=== PATIENT | male | born 1980 | race African-American/Black ===

== ENCOUNTER 2017-08-06 18:14 | Inpatient (IN) | payer MEDICAID ==
[~2017-08-06] VITALS: Ht 177.8 cm; Wt 93.4 kg
[~2017-08-06 18:14] MED LIST: SERT100T12 PO
[2017-08-06 21:30] VITALS: BP 128/76
[2017-08-06] MEDS ORDERED: HydrOXYzine PAMOATE 50 MG CAPSULE PO PRN (21:30)
[2017-08-06] MEDS ORDERED: LOPERAMIDE HCL 2 MG CAPSULE PO PRN (21:30)
[2017-08-06] MEDS ORDERED: LORazepam 2 MG TABLET PO PRN (21:30)
[2017-08-06] MEDS ORDERED: GuaiFENesin/D-METHORPHAN [SUGAR-FREE] 200-20MG/10 ML SYRUP UDCUP PO PRN (21:30)
[2017-08-06] MEDS ORDERED: CYANOCOBALAMIN 1,000 MCG/ML VIAL IM ONE (21:30)
[2017-08-06 21:41] VITALS: BP 128/75
[2017-08-06] MEDS ORDERED: -PHARMACY VACCINE NOTE- MISC ONE ×2 (21:45)
[2017-08-06] MEDS: THIAMINE HCL 100 MG TABLET PO SCH (21:55)
[2017-08-06 22:36] VITALS: BP 133/65
[2017-08-06 23:30] VITALS: BP 127/67
[2017-08-07] VITALS (8 sets, daily range): BP systolic 115–138; BP diastolic 64–81
[2017-08-07] MEDS ORDERED: LORazepam 2 MG TABLET PO PRN (07:00)
[2017-08-07 07:39] LABS: BASOPHILS % (AUTO) 0.5 % (0.0-2.0); EOSINOPHILS % (AUTO) 3.5 % (1.0-6.0); HEMATOCRIT 40.5 % (41-53); HEMOGLOBIN 13.7 g/dL (13.5-17.5); LYMPHOCYTES # (AUTO) 1.2 K/uL (1.0-4.8); LYMPHOCYTES % (AUTO) 33.4 % (22.0-44.0); MEAN CORPUSCULAR HEMOGLOBIN 28.7 pg (26.0-34.0); MEAN CORPUSCULAR HGB CONC 33.9 G/dL (31.0-37.0); MEAN CORPUSCULAR VOLUME 84 fL (80-100); MONOCYTES # (AUTO) 0.7 K/uL (0.1-1.0); MONOCYTES % (AUTO) 18.8 % (2.0-9.0); NEUTROPHILS # (AUTO) 1.6 K/uL (1.8-7.7); NEUTROPHILS % (AUTO) 43.8 % (40.0-70.0); PLATELET COUNT (AUTO) 189 K/uL (150-450); RED BLOOD CELL COUNT(AUTO) 4.79 MIL/uL (4.50-5.90); RED CELL DISTRIBUTION WIDTH 15.5 % (11.5-14.5); WHITE BLOOD COUNT (AUTO) 3.6 K/uL (4.5-11.0)
[2017-08-07 08:03] LABS: ALANINE AMINOTRANSFERASE 127 U/L (12-78); ALBUMIN 3.6 g/dL (3.4-5.0); ANION GAP 7 mmol/L (8-16); ASPARTATE AMINOTRANSFERASE 83 U/L (15-37); BILIRUBIN,TOTAL 0.7 mg/dL (0.1-1.0); CALCIUM, TOTAL 8.9 mg/dL (8.8-10.5); CARBON DIOXIDE 28 mmol/L (22-29); CHLORIDE 101 mmol/L (98-107); CREATININE 0.76 mg/dL (0.60-1.30); GLOMERULAR FILTR. RATE CALC > 60 mL/min (>60); POTASSIUM 3.9 mmol/L (3.5-5.1); SODIUM SERUM 136 mmol/L (136-145); THYROID STIMULATING HORMONE 1.86 uIU/mL (0.36-3.74); TOTAL PROTEIN, SERUM 7.3 g/dL (6.4-8.2); UREA NITROGEN, BLOOD 12 mg/dL (7-18)
[2017-08-07 08:34] LABS: APPEARANCE,URINE CLEAR (CLEAR); GLUCOSE, URINE (UA) NEGATIVE (NEGATIVE); KETONES,URINE 15 mg/dL (NEGATIVE); LEUKOCYTE ESTERASE ,URINE TRACE (NEGATIVE); OCCULT BLOOD,URINE NEGATIVE (NEGATIVE); PROTEIN,URINE POS 1+ (NEGATIVE)
[2017-08-07 08:38] LABS: ADD UA MICROSCOPIC YES
[2017-08-07 08:41] LABS: RBC,URINE 0-2 /HPF (0-2); WBC,URINE 0-2 /HPF (0-5)
[2017-08-07 08:49] LABS: CHOL/HDL RATIO 1.7 (4.2-7.3)
[2017-08-07] MEDS ORDERED: PETROLATUM,WHITE 71 GM JELLY TP PRN (09:00)
[2017-08-07] MEDS ORDERED: CloNIDine HCL 0.1 MG TABLET PO PRN (09:00)
[2017-08-07] MEDS ORDERED: MAGNESIUM HYDROXIDE SUSPENSION 30 ML UDCUP PO PRN (09:00)
[2017-08-07] MEDS ORDERED: ACETAMINOPHEN 325 MG TABLET PO PRN (09:00)
[2017-08-07] MEDS ORDERED: ONDANSETRON HCL 4 MG TABLET PO PRN (09:00)
[2017-08-07] MEDS ORDERED: BENZOCAINE/MENTHOL LOZENGE MM PRN (09:00)
[2017-08-07] MEDS ORDERED: LOPERAMIDE HCL 2 MG CAPSULE PO PRN (09:00)
[2017-08-07] MEDS ORDERED: BACITRACIN 28.4 GM OINTMENT TP PRN (09:00)
[2017-08-07] MEDS ORDERED: ALBUTEROL SULFATE HFA 90 MCG/PUFF 8 GM INHALER IH PRN (09:00)
[2017-08-07] MEDS ORDERED: MAG HYDROX/AL HYDROX/SIMETH ES 30 ML SUSPENSION UDCUP PO PRN (09:00)
[2017-08-07] MEDS: FOLIC ACID 1 MG TABLET PO SCH (09:53)
[2017-08-07] MEDS: LORazepam 2 MG TABLET PO SCH ×4 (09:53→21:17)
[2017-08-07] MEDS: MULTIVITAMINS WITH MINERALS, THERAPEUTIC TABLET PO SCH (09:53)
[2017-08-07] MEDS: THIAMINE HCL 100 MG TABLET PO SCH ×2 (09:53→17:09)
[2017-08-07] MEDS: SERTRALINE HCL 100 MG TABLET PO SCH (10:56)
[2017-08-08 01:25] VITALS: BP 117/63
[2017-08-08 05:30] VITALS: BP 115/68
[2017-08-08 09:00] VITALS: BP 128/67
[2017-08-08] MEDS: MULTIVITAMINS WITH MINERALS, THERAPEUTIC TABLET PO SCH (09:01)
[2017-08-08] MEDS: THIAMINE HCL 100 MG TABLET PO SCH ×2 (09:01→17:18)
[2017-08-08] MEDS: FOLIC ACID 1 MG TABLET PO SCH (09:01)
[2017-08-08] MEDS: LORazepam 2 MG TABLET PO SCH ×4 (09:01→20:55)
[2017-08-08] MEDS: SERTRALINE HCL 100 MG TABLET PO SCH (09:01)
[2017-08-08] MEDS ORDERED: DICLOFENAC SODIUM 1% 100 GM GEL [4GM] TP PRN (12:15)
[2017-08-08 17:00] VITALS: BP 133/75
[2017-08-08 17:15] VITALS: BP 118/76
[2017-08-09 05:43] VITALS: BP_SYST 103; BP_DIAS 6; BP_DIAS 66
[2017-08-09] MEDS ORDERED: LORazepam 1 MG TABLET PO PRN (07:00)
[2017-08-09 08:11] LABS: HEPATITIS Bs ANTIGEN SCREEN P Negative (Negative); HEPATITIS C AB SCREEN <0.1 s/co ratio (0.0-0.9)
[2017-08-09 09:01] VITALS: BP 115/94
[2017-08-09 09:05] VITALS: BP 115/94
[2017-08-09] MEDS: FOLIC ACID 1 MG TABLET PO SCH (09:32)
[2017-08-09] MEDS: SERTRALINE HCL 100 MG TABLET PO SCH (09:32)
[2017-08-09] MEDS: THIAMINE HCL 100 MG TABLET PO SCH ×2 (09:32→17:10)
[2017-08-09] MEDS: MULTIVITAMINS WITH MINERALS, THERAPEUTIC TABLET PO SCH (09:32)
[2017-08-09] MEDS: LORazepam 1 MG TABLET PO SCH ×4 (09:32→20:53)
[2017-08-09 12:40] VITALS: BP 125/78
[2017-08-09 16:30] VITALS: BP 118/88
[2017-08-09 16:49] VITALS: BP 118/88
[2017-08-10 06:51] VITALS: BP 112/59
[2017-08-10 06:52] VITALS: BP 112/59
[2017-08-10] MEDS ORDERED: LORazepam 1 MG TABLET PO PRN (07:00)
[2017-08-10 08:19] VITALS: BP 115/63
[2017-08-10] MEDS: SERTRALINE HCL 100 MG TABLET PO SCH (08:29)
[2017-08-10] MEDS: FOLIC ACID 1 MG TABLET PO SCH (08:29)
[2017-08-10] MEDS: THIAMINE HCL 100 MG TABLET PO SCH ×2 (08:29→17:06)
[2017-08-10] MEDS: MULTIVITAMINS WITH MINERALS, THERAPEUTIC TABLET PO SCH (08:29)
[2017-08-10] MEDS: IBUPROFEN 600 MG TABLET PO PRN ×2 (08:33→19:20)
[2017-08-10 09:36] VITALS: BP 115/63
[2017-08-10] MEDS ORDERED: BENZOYL PEROXIDE 10% TP PRN (14:15)
[2017-08-10 16:14] VITALS: BP 126/80
[2017-08-11 00:04] VITALS: BP 106/64
[2017-08-11] MEDS: THIAMINE HCL 100 MG TABLET PO SCH ×2 (08:13→16:47)
[2017-08-11] MEDS: MULTIVITAMINS WITH MINERALS, THERAPEUTIC TABLET PO SCH (08:13)
[2017-08-11] MEDS: DICLOFENAC SODIUM 1% 100 GM GEL [4GM] TP SCH ×2 (08:14→16:47)
[2017-08-11] MEDS: FOLIC ACID 1 MG TABLET PO SCH (08:14)
[2017-08-11] MEDS: SERTRALINE HCL 100 MG TABLET PO SCH (08:14)
[2017-08-11 08:56] LABS: HEMATOCRIT 41.2 % (41-53); MEAN CORPUSCULAR HEMOGLOBIN 28.4 pg (26.0-34.0); MEAN CORPUSCULAR HGB CONC 33.9 G/dL (31.0-37.0); MEAN CORPUSCULAR VOLUME 84 fL (80-100); PLATELET COUNT (AUTO) 196 K/uL (150-450); RED BLOOD CELL COUNT(AUTO) 4.92 MIL/uL (4.50-5.90); RED CELL DISTRIBUTION WIDTH 15.2 % (11.5-14.5); WHITE BLOOD COUNT (AUTO) 4.6 K/uL (4.5-11.0)
[2017-08-11 09:53] LABS: ANION GAP 5 mmol/L (8-16); CALCIUM, TOTAL 9.2 mg/dL (8.8-10.5); CARBON DIOXIDE 31 mmol/L (22-29); CHLORIDE 101 mmol/L (98-107); CHOL/HDL RATIO 2.4 (4.2-7.3); CREATININE 0.81 mg/dL (0.60-1.30); GLOMERULAR FILTR. RATE CALC > 60 mL/min (>60); PHOSPHORUS 3.9 mg/dL (2.5-4.9); POTASSIUM 4.6 mmol/L (3.5-5.1); SODIUM SERUM 137 mmol/L (136-145); THYROID STIMULATING HORMONE 2.21 uIU/mL (0.36-3.74); UREA NITROGEN, BLOOD 14 mg/dL (7-18)
[2017-08-11 10:15] LABS: EOSINOPHILS % (MANUAL) 1 % (1-6); LYMPHOCYTES % (MANUAL) 37 % (22-44); RBC MORPHOLOGY COMMENT NORMAL RBC MORPH; TOTAL CELLS COUNTED 100
[2017-08-11 10:24] VITALS: BP 118/61
[2017-08-11 10:58] VITALS: BP 124/71
[2017-08-11 10:59] VITALS: BP 124/71
[2017-08-11] MEDS: IBUPROFEN 600 MG TABLET PO PRN (11:00)
[2017-08-11 16:07] VITALS: BP 116/73
[2017-08-11 16:09] VITALS: BP 116/73
[2017-08-12 01:40] VITALS: BP 101/62
[2017-08-12 02:00] VITALS: BP 101/62
[2017-08-12 07:19] LABS: HEPATITIS C AB SCREEN <0.1 s/co ratio (0.0-0.9)
[2017-08-12] MEDS: DICLOFENAC SODIUM 1% 100 GM GEL [4GM] TP SCH ×2 (08:14→16:19)
[2017-08-12] MEDS: SERTRALINE HCL 100 MG TABLET PO SCH (08:14)
[2017-08-12] MEDS: MULTIVITAMINS WITH MINERALS, THERAPEUTIC TABLET PO SCH (08:14)
[2017-08-12] MEDS: THIAMINE HCL 100 MG TABLET PO SCH ×2 (08:14→16:19)
[2017-08-12] MEDS: FOLIC ACID 1 MG TABLET PO SCH (08:14)
[2017-08-12 09:03] VITALS: BP 125/66
[2017-08-12 10:52] VITALS: BP 125/66
[2017-08-12 16:26] VITALS: BP 121/72
[2017-08-12 16:28] VITALS: BP 121/72
[2017-08-12] MEDS ORDERED: ZOLPIDEM TARTRATE 10 MG TABLET PO PRN (20:30)
[2017-08-13 00:01] VITALS: BP 120/77
[2017-08-13] MEDS: MULTIVITAMINS WITH MINERALS, THERAPEUTIC TABLET PO SCH (09:00)
[2017-08-13] MEDS: DICLOFENAC SODIUM 1% 100 GM GEL [4GM] TP SCH ×2 (09:00→16:28)
[2017-08-13] MEDS: CHOLECALCIFEROL (VIT D3) 1,000 UNITS TABLET PO SCH (09:00)
[2017-08-13] MEDS: THIAMINE HCL 100 MG TABLET PO SCH ×2 (09:00→16:28)
[2017-08-13] MEDS: SERTRALINE HCL 100 MG TABLET PO SCH (09:00)
[2017-08-13] MEDS: FOLIC ACID 1 MG TABLET PO SCH (09:00)
[2017-08-13 09:06] VITALS: BP 103/55
[2017-08-13] MEDS ORDERED: LORazepam 1 MG TABLET PO PRN (15:15)
[2017-08-13] MEDS ORDERED: DiphenhydrAMINE HCL 25 MG CAPSULE PO PRN (15:15)
[2017-08-13 16:12] VITALS: BP 108/62
[2017-08-14 00:01] VITALS: BP 103/63
[2017-08-14] MEDS: MULTIVITAMINS WITH MINERALS, THERAPEUTIC TABLET PO SCH (07:58)
[2017-08-14] MEDS: DICLOFENAC SODIUM 1% 100 GM GEL [4GM] TP SCH (07:58)
[2017-08-14] MEDS: THIAMINE HCL 100 MG TABLET PO SCH (07:58)
[2017-08-14] MEDS: FOLIC ACID 1 MG TABLET PO SCH (07:58)
[2017-08-14] MEDS: SERTRALINE HCL 100 MG TABLET PO SCH (07:58)
[2017-08-14] MEDS: CHOLECALCIFEROL (VIT D3) 1,000 UNITS TABLET PO SCH (07:58)
[2017-08-14 08:16] VITALS: BP 114/60
[2017-08-14] MEDS ORDERED: DICL2100G TP (13:54)
== END 2017-08-14 15:50 | disposition home or self-care (01) | DRG 750 ==
LOC: B2S 20:30
PROVIDERS: ADMIT Psychiatry & Neurology Psychiatry; ATTEND Psychiatry & Neurology Child & Adolescent Psychiatry
DX: F20.0 Paranoid schizophrenia (principal); R45.851 Suicidal ideations; F32.9 Major depressive disorder, single episode, unspecified; F10.10 Alcohol abuse, uncomplicated; Z71.41 Alcohol abuse counseling and surveillance of alcoholic; F17.200 Nicotine dependence, unspecified, uncomplicated; Z71.6 Tobacco abuse counseling; G47.00 Insomnia, unspecified; K21.9 Gastro-esophageal reflux disease without esophagitis; K59.00 Constipation, unspecified
CPT/HCPCS: 80074; 80307; 82306; 83036; 83735; 84100; 84439; 84443; 85007; 86706; 86707; 86709; 86803; 87340; 87350; J3420

== ENCOUNTER 2017-09-02 09:54 | Inpatient (IN) | payer MEDICAID ==
[~2017-09-02] VITALS: Ht 175.3 cm; Wt 95.7 kg
[2017-09-02] VITALS (8 sets, daily range): BP systolic 115–146; BP diastolic 60–82
[~2017-09-02 09:54] MED LIST changes: +DICL2100G TP
[2017-09-02] MEDS ORDERED: CYANOCOBALAMIN 1,000 MCG/ML VIAL IM ONE (11:15)
[2017-09-02] MEDS ORDERED: GuaiFENesin/D-METHORPHAN [SUGAR-FREE] 200-20MG/10 ML SYRUP UDCUP PO PRN (11:15)
[2017-09-02] MEDS ORDERED: ChlordiazePOXIDE HCL 25 MG CAPSULE PO PRN (11:15)
[2017-09-02] MEDS ORDERED: HydrOXYzine PAMOATE 50 MG CAPSULE PO PRN (11:15)
[2017-09-02] MEDS: THIAMINE HCL 100 MG TABLET PO SCH (16:51)
[2017-09-02] MEDS: LOPERAMIDE HCL 2 MG CAPSULE PO PRN (19:41)
[2017-09-03] VITALS (8 sets, daily range): BP systolic 117–130; BP diastolic 60–80
[2017-09-03] MEDS ORDERED: ChlordiazePOXIDE HCL 25 MG CAPSULE PO PRN (07:00)
[2017-09-03 07:28] LABS: BASOPHILS % (AUTO) 0.7 % (0.0-2.0); HEMATOCRIT 39.3 % (41-53); HEMOGLOBIN 13.2 g/dL (13.5-17.5); LYMPHOCYTES # (AUTO) 1.9 K/uL (1.0-4.8); LYMPHOCYTES % (AUTO) 35.7 % (22.0-44.0); MEAN CORPUSCULAR HEMOGLOBIN 28.5 pg (26.0-34.0); MEAN CORPUSCULAR HGB CONC 33.7 G/dL (31.0-37.0); MEAN CORPUSCULAR VOLUME 85 fL (80-100); MONOCYTES # (AUTO) 0.7 K/uL (0.1-1.0); MONOCYTES % (AUTO) 12.5 % (2.0-9.0); NEUTROPHILS # (AUTO) 2.6 K/uL (1.8-7.7); NEUTROPHILS % (AUTO) 48.1 % (40.0-70.0); PLATELET COUNT (AUTO) 246 K/uL (150-450); RED BLOOD CELL COUNT(AUTO) 4.63 MIL/uL (4.50-5.90); RED CELL DISTRIBUTION WIDTH 15.4 % (11.5-14.5); WHITE BLOOD COUNT (AUTO) 5.4 K/uL (4.5-11.0)
[2017-09-03 08:02] LABS: ALANINE AMINOTRANSFERASE 46 U/L (12-78); ALBUMIN 3.6 g/dL (3.4-5.0); ANION GAP 6 mmol/L (8-16); ASPARTATE AMINOTRANSFERASE 28 U/L (15-37); BILIRUBIN,TOTAL 0.8 mg/dL (0.1-1.0); CALCIUM, TOTAL 8.8 mg/dL (8.8-10.5); CARBON DIOXIDE 30 mmol/L (22-29); CHLORIDE 102 mmol/L (98-107); CHOL/HDL RATIO 2.3 (4.2-7.3); CREATININE 0.94 mg/dL (0.60-1.30); GLOMERULAR FILTR. RATE CALC > 60 mL/min (>60); SODIUM SERUM 138 mmol/L (136-145); THYROID STIMULATING HORMONE 2.08 uIU/mL (0.36-3.74); TOTAL PROTEIN, SERUM 6.6 g/dL (6.4-8.2); UREA NITROGEN, BLOOD 12 mg/dL (7-18)
[2017-09-03] MEDS ORDERED: MAG HYDROX/AL HYDROX/SIMETH ES 30 ML SUSPENSION UDCUP PO PRN (08:45)
[2017-09-03] MEDS ORDERED: BENZOCAINE/MENTHOL LOZENGE MM PRN (08:45)
[2017-09-03] MEDS ORDERED: CloNIDine HCL 0.1 MG TABLET PO PRN (08:45)
[2017-09-03] MEDS ORDERED: ONDANSETRON HCL 4 MG TABLET PO PRN (08:45)
[2017-09-03] MEDS ORDERED: MAGNESIUM HYDROXIDE SUSPENSION 30 ML UDCUP PO PRN (08:45)
[2017-09-03] MEDS ORDERED: BACITRACIN 28.4 GM OINTMENT TP PRN (08:45)
[2017-09-03] MEDS ORDERED: ALBUTEROL SULFATE HFA 90 MCG/PUFF 8 GM INHALER IH PRN (08:45)
[2017-09-03] MEDS ORDERED: PETROLATUM,WHITE 71 GM JELLY TP PRN (08:45)
[2017-09-03] MEDS ORDERED: ACETAMINOPHEN 325 MG TABLET PO PRN (08:45)
[2017-09-03] MEDS ORDERED: IBUPROFEN 600 MG TABLET PO PRN (08:45)
[2017-09-03] MEDS: MULTIVITAMINS WITH MINERALS, THERAPEUTIC TABLET PO SCH (09:12)
[2017-09-03] MEDS: THIAMINE HCL 100 MG TABLET PO SCH ×2 (09:12→16:28)
[2017-09-03] MEDS: ChlordiazePOXIDE HCL 25 MG CAPSULE PO SCH ×4 (09:12→21:04)
[2017-09-03] MEDS: FOLIC ACID 1 MG TABLET PO SCH (09:13)
[2017-09-03] MEDS: SERTRALINE HCL 100 MG TABLET PO SCH (09:13)
[2017-09-03] MEDS: LOPERAMIDE HCL 2 MG CAPSULE PO PRN (09:31)
[2017-09-03] MEDS: BENZOYL PEROXIDE 10% TP SCH (15:45)
[2017-09-03] MEDS: LevETIRAcetam 500 MG TABLET PO SCH (16:28)
[2017-09-03] MEDS: MIRTAZAPINE 15 MG TABLET PO SCH (21:04)
[2017-09-04 01:48] VITALS: BP 122/70
[2017-09-04 08:06] VITALS: BP 129/74
[2017-09-04] MEDS: ChlordiazePOXIDE HCL 25 MG CAPSULE PO SCH ×4 (08:45→21:07)
[2017-09-04] MEDS: LevETIRAcetam 500 MG TABLET PO SCH ×2 (08:45→16:12)
[2017-09-04] MEDS: MULTIVITAMINS WITH MINERALS, THERAPEUTIC TABLET PO SCH (08:45)
[2017-09-04] MEDS: FOLIC ACID 1 MG TABLET PO SCH (08:45)
[2017-09-04] MEDS: SERTRALINE HCL 100 MG TABLET PO SCH (08:45)
[2017-09-04] MEDS: THIAMINE HCL 100 MG TABLET PO SCH ×2 (08:45→16:12)
[2017-09-04] MEDS: BENZOYL PEROXIDE 10% TP SCH (08:47)
[2017-09-04 09:48] VITALS: BP 129/74
[2017-09-04] MEDS: LOPERAMIDE HCL 2 MG CAPSULE PO PRN ×2 (12:07→13:22)
[2017-09-04 16:14] VITALS: BP 120/88
[2017-09-04 18:16] VITALS: BP 132/78
[2017-09-04] MEDS: MIRTAZAPINE 15 MG TABLET PO SCH (21:07)
[2017-09-05 01:00] VITALS: BP_SYST 111; BP_DIAS 60; BP_DIAS 61
[2017-09-05] MEDS ORDERED: ChlordiazePOXIDE HCL 10 MG CAPSULE PO PRN (07:00)
[2017-09-05 08:26] VITALS: BP 115/64
[2017-09-05] MEDS: FOLIC ACID 1 MG TABLET PO SCH (08:43)
[2017-09-05] MEDS: ChlordiazePOXIDE HCL 10 MG CAPSULE PO SCH ×4 (08:43→20:36)
[2017-09-05] MEDS: THIAMINE HCL 100 MG TABLET PO SCH ×2 (08:43→16:47)
[2017-09-05] MEDS: LevETIRAcetam 500 MG TABLET PO SCH ×2 (08:43→16:47)
[2017-09-05] MEDS: MULTIVITAMINS WITH MINERALS, THERAPEUTIC TABLET PO SCH (08:43)
[2017-09-05] MEDS: SERTRALINE HCL 100 MG TABLET PO SCH (08:43)
[2017-09-05] MEDS: BENZOYL PEROXIDE 10% TP SCH (08:44)
[2017-09-05 10:07] VITALS: BP 115/64
[2017-09-05] MEDS: OMEPRAZOLE 20 MG CAPSULE PO SCH (13:06)
[2017-09-05 16:24] VITALS: BP 107/67
[2017-09-05 18:13] VITALS: BP 107/67
[2017-09-05] MEDS: MIRTAZAPINE 15 MG TABLET PO SCH (20:36)
[2017-09-06 04:49] VITALS: BP 104/60
[2017-09-06] MEDS: OMEPRAZOLE 20 MG CAPSULE PO SCH (06:57)
[2017-09-06] MEDS ORDERED: ChlordiazePOXIDE HCL 10 MG CAPSULE PO PRN (07:00)
[2017-09-06] MEDS: THIAMINE HCL 100 MG TABLET PO SCH (08:41)
[2017-09-06] MEDS: SERTRALINE HCL 100 MG TABLET PO SCH (08:41)
[2017-09-06] MEDS: FOLIC ACID 1 MG TABLET PO SCH (08:41)
[2017-09-06] MEDS: MULTIVITAMINS WITH MINERALS, THERAPEUTIC TABLET PO SCH (08:41)
[2017-09-06] MEDS: BENZOYL PEROXIDE 10% TP SCH (08:42)
[2017-09-06] MEDS: LevETIRAcetam 500 MG TABLET PO SCH (08:42)
[2017-09-06 09:05] VITALS: BP 129/68
[2017-09-06] MEDS ORDERED: MIRT15 PO (11:59)
[2017-09-06] MEDS ORDERED: OMEP20 PO (11:59)
[2017-09-06] MEDS ORDERED: FOLI1 PO (11:59)
[2017-09-06] MEDS ORDERED: THIA100 PO (11:59)
[2017-09-06] MEDS ORDERED: MV-M1TAB2 PO (11:59)
[2017-09-06] MEDS ORDERED: LEVE500T53 PO (11:59)
== END 2017-09-06 13:25 | disposition home or self-care (01) | DRG 751 ==
LOC: EDSTATUS 12:00 → B2S 12:18
PROVIDERS: ADMIT Psychiatry & Neurology Child & Adolescent Psychiatry; ATTEND Psychiatry & Neurology Child & Adolescent Psychiatry
DX: F33.2 Major depressive disorder, recurrent severe without psychotic features (principal); R45.851 Suicidal ideations; G40.409 Other generalized epilepsy and epileptic syndromes, not intractable, without status epilepticus; F10.10 Alcohol abuse, uncomplicated; F15.10 Other stimulant abuse, uncomplicated; F17.200 Nicotine dependence, unspecified, uncomplicated; Z71.6 Tobacco abuse counseling; G47.00 Insomnia, unspecified; K21.9 Gastro-esophageal reflux disease without esophagitis; K59.00 Constipation, unspecified; Z72.89 Other problems related to lifestyle; Z71.41 Alcohol abuse counseling and surveillance of alcoholic
CPT/HCPCS: 83036; 84439; 84443; J3420